=== PATIENT | male | born 1975 | race Two or more races ===

== ENCOUNTER 2022-01-09 09:12 | Inpatient (IN) | payer OTHER ==
[~2022-01-09] VITALS: Ht 167.6 cm; Wt 108.0 kg
[2022-01-15] MEDS ORDERED: KETOROLAC TROMET5 ML (15:27)
[2022-01-15] MEDS ORDERED: PREDNISOLONE ACE5 ML (15:27)
[2022-01-15] MEDS ORDERED: OFLOXACIN5 ML (15:27)
[2022-01-18] MEDS ORDERED: HYOSCYAMINE0.125 M1 SL (10:49)
[2022-01-18] MEDS ORDERED: PROTONIX40 MG PO (10:49)
[2022-01-18] MEDS ORDERED: OXYC1TAB9 PO (10:49)
== END 2022-01-18 14:35 | disposition home or self-care (01) | DRG 331 ==
LOC: SURH 01-15 07:00 → O/R 01-15 09:20 → SURH 01-15 16:04
PROVIDERS: ADMIT Surgery; ATTEND Surgery
PROC: 0DBP4ZZ Excision of Rectum, Percutaneous Endoscopic Approach (ICD-10-PCS; 2022-01-15)
PROC: 0DJD8ZZ Inspection of Lower Intestinal Tract, Via Natural or Artificial Opening Endoscopic (ICD-10-PCS; 2022-01-15)
PROC: 0DTN4ZZ Resection of Sigmoid Colon, Percutaneous Endoscopic Approach (ICD-10-PCS; principal; 2022-01-15 07:00)
DX: K57.32 Diverticulitis of large intestine without perforation or abscess without bleeding (principal); R10.32 Left lower quadrant pain; R19.4 Change in bowel habit; K66.0 Peritoneal adhesions (postprocedural) (postinfection); G47.39 Other sleep apnea; Z20.822 Contact with and (suspected) exposure to COVID-19